=== PATIENT | male | born 1975 ===

== ENCOUNTER 2022-07-13 07:02 | Day surgery (SDC) | payer OTHER ==
[~2022-07-13] VITALS: Ht 167.6 cm; Wt 86.2 kg
[~2022-07-13 07:02] MED LIST: GABAPENTIN800 M1 PO; LIPITOR20 MG PO; METFORMIN HCL500 M3 PO; PLAVIX75 MG PO; WELLBUTRIN XL300 MG PO
== END 2022-07-13 13:20 | disposition home or self-care (01) ==
LOC: CIR.AMB 07:02
PROVIDERS: ATTEND Urology
DX: N20.0 Calculus of kidney (principal); Z20.822 Contact with and (suspected) exposure to COVID-19; Z88.6 Allergy status to analgesic agent; J45.909 Unspecified asthma, uncomplicated; E11.9 Type 2 diabetes mellitus without complications

== ENCOUNTER 2025-01-27 17:59 | Outpatient (CLI) | payer OTHER | END 2025-01-27 18:13 | disposition home or self-care (01) | LOC: LAB 17:59 | PROVIDERS: ATTEND Urology | DX: R97.20 Elevated prostate specific antigen [PSA] (principal) ==

== ENCOUNTER 2025-03-12 07:18 | Outpatient (CLI) | payer OTHER | END 2025-03-12 07:20 | disposition home or self-care (01) | LOC: SONOGRAMA 07:18 | PROVIDERS: ATTEND Urology | DX: N40.1 Benign prostatic hyperplasia with lower urinary tract symptoms (principal); R97.20 Elevated prostate specific antigen [PSA] ==